=== PATIENT | female | born 1980 | race Caucasian/White ===

== ENCOUNTER 2016-08-15 05:35 | Day surgery (SDC) | payer OTHER ==
[~2016-08-15] VITALS: Ht 185.4 cm; Wt 99.0 kg
[2016-08-15] VITALS (15 sets, daily range): BP systolic 118–140; BP diastolic 67–78; PULSE 86–104; RESP 11–19; Ht 185.4 cm; Wt 99.0 kg
[~2016-08-15 05:35] MED LIST: ACET1TAB40 PO; ACYC400T84 PO; CIPR500T4 PO; CLOT30CR24 TOP; FLUC150T17 PO; HUM100IN2 SC; IBUP-1542 PO; INSU100V18; METF500T PO; NITR-58 PO; NPH,3INS5; PHEN-538 PO
[2016-08-15 06:46] LABS: INR 0.88; PROTIME 11.9 Sec (12.2-14.2); PT RATIO 0.9
[2016-08-15 06:47] LABS: PARTIAL THROMBOPLASTIN TIME 29.9 Sec (25.0-35.0)
[2016-08-15 06:49] LABS: POTASSIUM 4.1 mmol/L (3.5-5.1)
[2016-08-15 06:51] LABS: CREATININE 0.46 mg/dl (0.44-1.00)
[2016-08-15] MEDS ORDERED: NOVO3I SC (06:53)
[2016-08-15] MEDS ORDERED: MTF1000T PO (06:53)
[2016-08-15] MEDS ORDERED: INSULIN ASPART [NOVOLOG] 3 ML PEN SC ONE (07:00)
[2016-08-15 07:07] LABS: BASOPHIL # 0.1 10^3/ul (0.0-0.1); BASOPHILS % 0.6 % (0.0-2.0); EOSINOPHILS # 0.2 10^3/ul (0.0-0.5); EOSINOPHILS % 2.4 % (0.0-7.0); HEMATOCRIT 37.4 % (37.0-47.0); HEMOGLOBIN 13.1 g/dl (12.0-16.0); LYMPHOCYTES # 3.5 10^3/ul (0.8-2.9); MEAN CORPUSCULAR HEMOGLOBIN 29.7 pg (29.0-33.0); MEAN CORPUSCULAR HGB CONC 34.9 g/dl (32.0-37.0); MEAN PLATELET VOLUME 8.8 fl (7.4-10.4); MONOCYTE # 0.7 10^3/ul (0.3-0.9); MONOCYTES % 7.1 % (0.0-11.0); NEUTROPHIL # 5.5 10^3/ul (1.6-7.5); NEUTROPHILS % 54.9 % (39.0-77.0); PLATELET COUNT 264 10^3/UL (140-440); RED CELL DISTRIBUTION WIDTH 14.1 % (11.5-14.5)
[2016-08-15] MEDS ORDERED: SUCCINYLCHOLINE CHLORIDE 100 MG/5 ML SYG IV ONE (07:29)
[2016-08-15] MEDS ORDERED: ONDANSETRON 4 MG INJ ONE (07:29)
[2016-08-15] MEDS ORDERED: NEOSTIGMINE 3 MG/3 ML SYRINGE ONE (07:29)
[2016-08-15] MEDS ORDERED: PROPOFOL 20 ML ONE (07:29)
[2016-08-15] MEDS ORDERED: DEXAMETHASONE 4 MG/ML 1 ML INJ ONE (07:29)
[2016-08-15] MEDS ORDERED: LIDOCAINE 100 MG SYRINGE ONE (07:29)
[2016-08-15] MEDS ORDERED: MIDAZOLAM 1 MG/ML 2 ML INJ ONE (07:29)
[2016-08-15] MEDS ORDERED: FENTAnyl 50 MCG/ML VIAL ONE (07:29)
[2016-08-15] MEDS ORDERED: GLYCOPYRROLATE 0.4 MG INJ ONE (07:29)
[2016-08-15] MEDS ORDERED: ROCURONIUM 50 MG INJ ONE (07:29)
[2016-08-15 07:37] LABS: CONDITION 1
--- NOTE | 2016-08-15 07:38 | HPN ---
Date/Time of Note Date/Time of Note DATE: 08/15/16 TIME: 07:37 Interval H&P Admission Note Pt. seen H&P reviewed: No system changes JUANITO WAGGONER MD Aug 15, 2016 07:37
[2016-08-15] MEDS ORDERED: KETOROLAC 30 MG INJ ONE (07:59)
[2016-08-15] MEDS ORDERED: FERRIC SUBSULFATE 8 GM VIAL TOP ONE (08:01)
--- NOTE | 2016-08-15 08:30 | OPPN ---
Date/Time of Note Date/Time of Note DATE: 08/15/16 TIME: 08:27 Operative/Procedure Note Pre-Operative Diagnosis Cervical dysplasia Post-Operative Diagnosis Same Procedure LEEP Surgeon: JUANITO WAGGONER MD Anesthesiologist: Rico Cast M.D. Findings Previous LEEP, retraction at left lateral fornix. Implants/Grafts: Not applicable Estimated blood loss: 50 - 100 ml's Drains: Not applicable Specimens LEEP and ECC Complications: None Anesthesia type: general JUANITO WAGGONER MD Aug 15, 2016 08:29
[2016-08-15] MEDS ORDERED: FENTAnyl 50 MCG/ML VIAL IV PRN (09:00)
[2016-08-15] MEDS ORDERED: HYDROmorphONE (0.2 MG/ML) 10ML SYG IV PRN ×2 (09:00)
--- NOTE | 2016-08-17 03:18 | OPR ---
DATE OF OPERATION: 08/15/2016 PREOPERATIVE DIAGNOSIS: Cervical dysplasia, moderate. POSTOPERATIVE DIAGNOSIS: Cervical dysplasia, moderate, pending final pathology. OPERATION PERFORMED: Loop electrosurgical excision procedure. ANESTHESIA: General endotracheal. ESTIMATED BLOOD LOSS: Minimal. INTRAOPERATIVE FINDING: Cervix is normal size. There was a retraction toward the left fornix. HISTORY: This is a 35-year-old female who has insulin-dependent diabetes. Her hemoglobin A1c is about 12. She has an abnormal Pap smear. Cervical biopsy and ECC shows SHRUTHI 2, and she is to undergo the above operation to rule out invasive disease. DESCRIPTION OF PROCEDURE: The patient was taken to the OR after of adequate anesthesia, placed in s upine position, prepped and draped in usual sterile fashion. Weighted speculum was placed in the va hieu. Anterior lip of the cervix grasped using single tooth tenaculum. Again, there was retraction for the cervix in the left fornix, probably due to her previous delivery. In any case, medium LEEP wire was selected due to the retraction. The LEEP was performed in 3 passes. Care was taken not t o traumatize the vaginal wall. Then 3 separate passes were made to perform the adequately LEEP, and followed LEEP, the ECC was then performed using endocervical curette in thorough fashion. Upon KENDALL P procedure and ECC, I then proceeded to cauterize the base of the LEEP cone. This was completely c auterized, and good hemostasis was achieved. Once this was completed, the tenaculum released. The tenaculum site was cauterized, and the base of the LEEP cone was then applied with Monsel solution f or further reassurance of hemostasis. At this time, we then watched the cone site for about 5 minut es, and it was hemostatic. At this time, the patient was cleansed, placed back in supine position, successfully extubated, and transferred to recovery in stable condition. Dictated By: DANIEL KOROMA/KAREN Conf#: [id number] DID#: [id number]
== END 2016-08-15 09:52 | disposition home or self-care (01) ==
LOC: SDS 05:35
PROVIDERS: ATTEND Obstetrics & Gynecology Gynecologic Oncology
DX: D06.0 Carcinoma in situ of endocervix (principal); N72 Inflammatory disease of cervix uteri; E11.9 Type 2 diabetes mellitus without complications
CPT/HCPCS: 57522; 80048; 82962; 84703; 85025; 85610; 85730; 88305; J0330; J1100; J1815; J1885; J2001; J2250; J2405; J2710; J3010; Z7512; Z7610

== ENCOUNTER 2017-06-09 13:54 | Inpatient (IN) | payer OTHER ==
[~2017-06-09] VITALS: Ht 185.4 cm; Wt 103.4 kg
[2017-06-09] VITALS (11 sets, daily range): BP systolic 119–145; BP diastolic 65–88; PULSE 68–105; RESP 10–18; Ht 185.4 cm; Wt 103.4 kg
[~2017-06-09 13:54] MED LIST changes: +LIDOCAINE 2% (SDV) 5 ML INJ ONE; +MTF1000T PO; +NOVO3I SC
[2017-06-09] MEDS ORDERED: INSU100I33 SC (15:19)
[2017-06-09] MEDS ORDERED: INSU200I SQ ×2 (15:20→15:22)
--- NOTE | 2017-06-09 19:41 | HPN ---
Date/Time of Note Date/Time of Note DATE: 06/09/17 TIME: 19:41 Interval H&P Admission Note Pt. seen H&P reviewed: No system changes JUANITO WAGGONER MD Jun 09, 2017 19:41
[2017-06-09] MEDS ORDERED: LIDOCAINE 1% (MPF) 30 ML INJ ONE (19:47)
[2017-06-09] MEDS ORDERED: VASOPRESSIN 20 UNITS INJ ONE (19:47)
[2017-06-09] MEDS ORDERED: METHYLENE BLUE 1% 10 ML INJ ONE (19:48)
[2017-06-09] MEDS ORDERED: morphine SULFATE/PF (10 MG/10 ML) INJ ONE (19:52)
[2017-06-09] MEDS ORDERED: FENTAnyl 50 MCG/ML VIAL ONE ×2 (19:52→20:43)
[2017-06-09] MEDS ORDERED: ROCURONIUM 50 MG INJ ONE (20:02)
[2017-06-09] MEDS ORDERED: PROPOFOL 20 ML ONE (20:02)
[2017-06-09] MEDS ORDERED: MIDAZOLAM 1 MG/ML 2 ML INJ ONE (20:03)
[2017-06-09] MEDS ORDERED: BUPIVACAINE 0.5% (SDV) 30 ML INJ ONE (20:11)
[2017-06-09] MEDS ORDERED: DEXAMETHASONE 4 MG/ML 1 ML INJ ONE (20:52)
[2017-06-09] MEDS ORDERED: KETOROLAC 30 MG INJ ONE (21:56)
[2017-06-09] MEDS ORDERED: ONDANSETRON 4 MG INJ ONE (21:57)
[2017-06-09] MEDS ORDERED: DIPHENHYDRAMINE 50 MG INJ IV PRN ×2 (22:00→22:30)
[2017-06-09] MEDS ORDERED: GLUCOSE GEL 15 GRAM TUBE BUCCAL PRN (22:00)
[2017-06-09] MEDS ORDERED: EPHEDrine SULFATE 50 MG/5 ML SYG IV PRN (22:00)
[2017-06-09] MEDS ORDERED: INSULIN ASPART [NOVOLOG] 3 ML PEN SC ONE (22:00)
[2017-06-09] MEDS ORDERED: hydrALAzine 20 MG INJ IV PRN (22:00)
[2017-06-09] MEDS ORDERED: HYDROmorphONE (0.2 MG/ML) 10ML SYG IV PRN ×3 (22:00)
[2017-06-09] MEDS ORDERED: MIDAZOLAM 1 MG/ML 2 ML INJ IV PRN (22:00)
[2017-06-09] MEDS ORDERED: KETOROLAC 30 MG INJ IV PRN ×2 (22:00→22:30)
[2017-06-09] MEDS ORDERED: DEXTROSE 50% 50 ML SYRINGE IV PRN ×2 (22:00)
[2017-06-09] MEDS ORDERED: GLUCAGON 1 MG INJ IM PRN (22:00)
[2017-06-09] MEDS ORDERED: FENTAnyl 50 MCG/ML VIAL IV PRN ×3 (22:00)
[2017-06-09] MEDS ORDERED: METOCLOPRAMIDE 10 MG INJ IV PRN ×2 (22:00→22:30)
[2017-06-09] MEDS ORDERED: GLUCOSE GEL 15 GRAM TUBE PO PRN ×2 (22:00)
[2017-06-09] MEDS ORDERED: MEPERIDINE 25 MG INJ IV PRN (22:00)
[2017-06-09] MEDS ORDERED: ONDANSETRON 4 MG INJ IV PRN ×3 (22:00→22:30)
[2017-06-09] MEDS ORDERED: LABETALOL HCL 20MG INJ IV PRN (22:00)
[2017-06-09] MEDS ORDERED: GLYCOPYRROLATE 0.4 MG INJ ONE (22:04)
[2017-06-09] MEDS ORDERED: NEOSTIGMINE 3 MG/3 ML SYRINGE ONE (22:04)
--- NOTE | 2017-06-09 22:12 | SIPON ---
Date/Time of Note Date/Time of Note DATE: 06/09/17 TIME: 22:11 Operative Report Preoperative Diagnosis CIS of cervix Postoperative Diagnosis SAme Operation/Procedure Performed Total laparoscopic hysterectomy, bilateral salpingectomy Surgeon Peyton Sherman MD physical laboratory assistant [employer] Anesthesia: general, spinal Estimated blood loss: 100 - 150 ml's Transfusion Required none Specimen Uterus, cervix, fallopian tubes Grafts/Implants none Complications none JUANITO SHERMAN MD Jun 09, 2017 22:12
[2017-06-09] MEDS ORDERED: NALOXONE (0.4 MG/ML) INJ IV PRN (22:30)
[2017-06-09] MEDS ORDERED: HYDROmorphONE 0.5 MG/0.5 ML SYG IV PRN ×2 (22:30)
[2017-06-09] MEDS ORDERED: ACETAMINOPHEN 325 MG TAB PO PRN (22:30)
[2017-06-09] MEDS ORDERED: morphine 2 MG INJ IV PRN (22:30)
[2017-06-09] MEDS ORDERED: HYDROCODONE/APAP (5/325) TAB PO PRN (22:30)
[2017-06-09] MEDS ORDERED: ZOLPIDEM 5 MG TAB PO PRN (22:30)
[2017-06-09 22:52] LABS: BASOPHIL # 0.1 10^3/ul (0.0-0.1); BASOPHILS % 0.3 % (0.0-2.0); EOSINOPHILS # 0.1 10^3/ul (0.0-0.5); EOSINOPHILS % 0.6 % (0.0-7.0); HEMATOCRIT 35.6 % (37.0-47.0); HEMOGLOBIN 12.3 g/dl (12.0-16.0); LYMPHOCYTES # 2.8 10^3/ul (0.8-2.9); MEAN CORPUSCULAR HEMOGLOBIN 29.4 pg (29.0-33.0); MEAN CORPUSCULAR HGB CONC 34.6 g/dl (32.0-37.0); MEAN CORPUSCULAR VOLUME 85.2 fl (82.0-101.0); MEAN PLATELET VOLUME 9.6 fl (7.4-10.4); MONOCYTE # 0.4 10^3/ul (0.3-0.9); MONOCYTES % 2.3 % (0.0-11.0); NEUTROPHIL # 15.3 10^3/ul (1.6-7.5); NEUTROPHILS % 81.3 % (39.0-77.0); PLATELET COUNT 298 10^3/UL (140-415); RED BLOOD COUNT 4.18 10^6/ul (4.20-5.40); RED CELL DISTRIBUTION WIDTH 13.2 % (11.5-14.5); WHITE BLOOD COUNT 18.8 10^3/ul (4.8-10.8)
[2017-06-09 22:57] LABS: HOLD TRANSMISSIONS 1
[2017-06-09 23:30] LABS: CALCIUM 8.6 mg/dl (8.4-10.2); CREATININE 0.62 mg/dl (0.44-1.00)
[2017-06-10] VITALS (10 sets, daily range): BP systolic 110–116; BP diastolic 57–66; PULSE 65–75; RESP 15–19
[2017-06-10 05:12] LABS: BASOPHILS % 0.2 % (0.0-2.0); HEMATOCRIT 40.8 % (37.0-47.0); LYMPHOCYTES % 7.5 % (15.0-51.0); MEAN CORPUSCULAR HEMOGLOBIN 29.2 pg (29.0-33.0); MEAN CORPUSCULAR HGB CONC 34.3 g/dl (32.0-37.0); MEAN PLATELET VOLUME 9.8 fl (7.4-10.4); MONOCYTE # 0.1 10^3/ul (0.3-0.9); NEUTROPHIL # 11.9 10^3/ul (1.6-7.5); NEUTROPHILS % 90.8 % (39.0-77.0); PLATELET COUNT 319 10^3/UL (140-415); RED CELL DISTRIBUTION WIDTH 13.1 % (11.5-14.5); WHITE BLOOD COUNT 13.1 10^3/ul (4.8-10.8)
[2017-06-10 05:40] LABS: CALCIUM 9.1 mg/dl (8.4-10.2); CREATININE 0.56 mg/dl (0.44-1.00); POTASSIUM 4.8 mmol/L (3.5-5.1)
--- NOTE | 2017-06-10 07:01 | OPR ---
DATE OF OPERATION: 06/09/2017 PREOPERATIVE DIAGNOSES: 1. Carcinoma in situ of the cervix. 2. History of section. POSTOPERATIVE DIAGNOSES: 1. Carcinoma in situ of the cervix. 2. History of section. SURGEON: Peyton Sherman MD STAMPING MILL TENDER: None. PROCEDURE: Total laparoscopic hysterectomy with bilateral salpingectomy. ANESTHESIA: General endotracheal and spinal. ANESTHESIOLOGIST: Dr. Gonsalez. ESTIMATED BLOOD LOSS: About 100 mL. INTRAOPERATIVE FINDINGS: The patient is obese. Uterus is about 10 weeks' size. There is a lower uterine segment scar. Ovaries are normal bilaterally. HISTORY: This is a 36-year-old female who is an insulin-dependent diabetic. She has a high grade Pap smear and that led to a biopsy showing SHRUTHI 3. She underwent a LEEP procedure and it did show SHRUTHI 3. No invasive disease. The patient was counseled regarding observation versus definitive hysterectomy and patient is insulin-dependent diabetes. She has completed childbearing and she desires surgical treatment. She was authorized and cleared to undergo the above operation. PROCEDURE IN DETAIL: She was taken to the OR. After adequate general and spinal anesthesia, she was placed in supine position, prepped and draped in the usual sterile fashion. A Dumont catheter was inserted by nursing staff. The cervix was dilated. A standard size VCare uterine manipulator was inserted. Vaginal pneumo-occluder was applied. I then changed gloves, went up to the abdomen. A supraumbilical incision made using an 11 blade. A 5 mm trocar was placed. The patient was placed in Trendelenburg position. Three other trocars were placed, one 5 mm in the right lower quadrant, a second 5 mm in the left lower quadrant, and an 11 mm suprapubic. There were omental adhesions to the anterior abdominal wall and these were taken down using an Olympus Thunderbeat device. Also, omental adhesions to the fallopian tube on the left side. When this was all taken down, I then proceeded to separate the fallopian tube from the ovary by cauterizing and transecting the meso-ovarian tissue. Fallopian tubes were kept attached to the uterus. Next, the round ligament was then cauterized and transected. I then took the bladder flap down to pubocervical fascia below the scar. There were more scars on the left side and these were taken down without difficulty. A vascular space was opened. Since we are preserving the ovaries. Both utero-ovarian ligaments were cauterized and transected using Olympus Thunderbeat device. Once ovaries were , I proceeded to skeletonize the tissues surrounding the cervical cup VCare device and uterine vessels were isolated, cauterized, cut, and rolled over the cervical cup. At this time, the entire cup was well visualized in 360 degrees. I then used a Gyrus bipolar J-hook to perform colpotomy. This was completed in 360 degrees without difficulty. At this time I went down below. I removed the VCare device and I grabbed the cervix. I delivered the specimen vaginally intact and sent to Pathology as a permanent section. At this time, vaginal pneumo-occluder was reapplied. I then changed gloves and went back up to abdomen and pelvis, thoroughly irrigated. Multiple pictures were taken. Next, I proceeded to close the vaginal cuff abdominally. This was a V-Loc suture. This was a GS-22 needle and a 2-0 PDS suture. This was placed in through the suprapubic trocar and the vaginal cuff was closed from left angle to right angle , incorporating full thickness of vagina. At right angle, suture was cut and the needle was removed. The midline vaginal cuff was further reinforced using 0 PDS on a CT2 needle. This was sutured intracorporally, and tied extracorporally. Both sutures were cut. Both needles were removed. At this time, a low pressure check was made. All the pedicles were hemostatic. At this time, the suprapubic trocar was removed. The fascia for the suprapubic trocar was closed using Endo closure device with a 0 Vicryl suture. Once this was closed, the patient was placed back in supine position. All the trocars were removed and pneumoperitoneum was released, and the skin sites were closed using Monocryl and Dermabond. At this time, the patient was cleansed, vaginal pneumo-occluder was removed, placed back in supine position, patient extubated and transferred to recovery room in stable condition. Dictated By: PEYTON KOROMA/KAREN Conf#: [id number] DID#: [id number] DASHAWN
[2017-06-10] MEDS: metFORMIN 500 MG TAB PO SCH ×2 (08:32→17:30)
[2017-06-10] MEDS: INSULIN ASPART [NOVOLOG] 3 ML PEN SC SCH ×4 (08:42→20:32)
[2017-06-10] MEDS ORDERED: METOCLOPRAMIDE 10 MG INJ IV PRN (20:11)
[2017-06-10] MEDS ORDERED: ONDANSETRON 4 MG INJ IV PRN (20:11)
[2017-06-10] MEDS ORDERED: morphine 2 MG INJ IV PRN (20:11)
[2017-06-10] MEDS ORDERED: INSULIN GLARGINE [LANtus] 3 ML PEN SC SCH (21:00)
--- NOTE | 2017-06-10 21:12 | PN ---
Date/Time of Note Date/Time of Note DATE: 06/10/17 TIME: 21:11 Assessment/Plan VTE Prophylaxis VTE Prophylaxis Intervention: SCD's Lines/Catheters IV [facility]from [facility] Peripheral IV Urinary Cath still in place: No Assessment/Plan Chief Complaint/Hosp Course POD #1 Problems: Assessment/Plan Advance diet, d/c wells, D/C planning for tomorrow. Subjective 24 Hr Interval Summary Constitutional: no complaints Exam/Review of Systems Vital Signs Vitals Vital Signs Date Time Temp Pulse Resp B/P Pulse Ox O2 Delivery O2 Flow Rate FiO2 06/10/17 20:00 98.7 74 18 112/61 99 06/10/17 02:05 Room Air Intake and Output 06/09/17 06/09/17 06/10/17 15:00 23:00 07:00 Intake Total 1200 ml 220 ml Output Total 240 ml 400 ml Balance 960 ml -180 ml Exam Gastrointestinal: soft Results Result Diagram: 06/10/17 0443 06/10/17 0443 Results 24 hrs Laboratory Tests Test 06/09/17 22:47 06/09/17 23:17 06/10/17 00:31 06/10/17 04:43 White Blood Count 18.8 #H 13.1 #H Red Blood Count 4.18 L 4.80 Hemoglobin 12.3 14.0 Hematocrit 35.6 L 40.8 Mean Corpuscular Volume 85.2 85.0 Mean Corpuscular Hemoglobin 29.4 29.2 Mean Corpuscular Hemoglobin Concent 34.6 34.3 Red Cell Distribution Width 13.2 13.1 Platelet Count 298 319 Mean Platelet Volume 9.6 9.8 Neutrophils % 81.3 H 90.8 H Lymphocytes % 15.0 7.5 L Monocytes % 2.3 1.0 Eosinophils % 0.6 0.0 Basophils % 0.3 0.2 Nucleated Red Blood Cells % 0.0 0.0 Neutrophils # 15.3 H 11.9 H Lymphocytes # 2.8 1.0 Monocytes # 0.4 0.1 L Eosinophils # 0.1 0.0 Basophils # 0.1 0.0 Nucleated Red Blood Cells # 0.0 0.0 CBC Results Faxed/Phoned 1 *H Sodium Level 138 138 Potassium Level 4.0 4.8 Chloride Level 105 104 Carbon Dioxide Level 25 25 Anion Gap 12 14 Blood Urea Nitrogen 8 12 Creatinine 0.62 0.56 Glucose Level 215 242 H Calcium Level 8.6 9.1 Bedside Glucose 229 H 229 H Test 06/10/17 06:21 06/10/17 08:35 06/10/17 12:50 06/10/17 17:13 Lab Scanned Report LAB Bedside Glucose 211 174 168 Test 06/10/17 20:28 Bedside Glucose 192 Medications Medications Current Medications Miscellaneous Information 1 ea NOTE XX ; Start 06/09/17 at 22:00 Glucose (Glutose) 15 gm Q15M PRN PO DECREASED GLUCOSE; Start 06/09/17 at 22:00 Glucose (Glutose) 22.5 gm Q15M PRN PO DECREASED GLUCOSE; Start 06/09/17 at 22: 00 Dextrose (D50w Syringe) 25 ml Q15M PRN IV DECREASED GLUCOSE; Start 06/09/17 at 22:00 Dextrose (D50w Syringe) 50 ml Q15M PRN IV DECREASED GLUCOSE; Start 06/09/17 at 22:00 Glucagon (Glucagen) 1 mg Q15M PRN IM DECREASED GLUCOSE; Start 06/09/17 at 22:00 Glucose (Glutose) 15 gm Q15M PRN BUCCAL DECREASED GLUCOSE; Start 06/09/17 at 22 :00 Acetaminophen (Tylenol Tab) 650 mg Q4H PRN PO PAIN LEVEL 1-5; Start 06/09/17 at 22:30 Naloxone HCl (Narcan) 0.2 mg Q2M PRN IV FOR RESP RATE 8 OR LESS; Start at 22:30 Insulin Glargine (Lantus) 40 unit QHS SC Last administered on 06/10/17t 20:31; Admin Dose 40 UNIT; Start 06/10/17 at 21:00 Diagnostic Test (Pha) (Accu-Chek) 1 ea 02 XX ; Start 06/11/17 at 02:00 Diagnostic Test (Pha) (Accu-Chek) 1 ea 02 XX ; Start 06/11/17 at 02:00 Acetaminophen/ Hydrocodone Bitart ([place] (5/325)) 1 tab Q4H PRN PO PAIN LEVEL 6 -10; Start 06/10/17 at 20:11 Metoclopramide HCl (Reglan) 10 mg Q6H PRN IV NAUSEA AND/OR VOMITING; Start 06/10/17 at 20:11 Morphine Sulfate (morphine) 2 mg Q2H PRN IV BREAKTHROUGH PAIN; Start 06/10/17 at 20:11 Ondansetron HCl (Zofran Inj) 4 mg Q6H PRN IV NAUSEA AND/OR VOMITING; Start 06/10/17 at 20:11 JUANITO WAGGONER MD Jun 10, 2017 21:12
[2017-06-11] MEDS ORDERED: ACCU-CHEK XX SCH ×2 (02:00)
[2017-06-11 02:11] VITALS: BP 119/56; RESP 18
[2017-06-11 05:11] LABS: BASOPHILS % 0.4 % (0.0-2.0); EOSINOPHILS # 0.1 10^3/ul (0.0-0.5); EOSINOPHILS % 0.8 % (0.0-7.0); HEMOGLOBIN 11.6 g/dl (12.0-16.0); LYMPHOCYTES # 4.4 10^3/ul (0.8-2.9); LYMPHOCYTES % 38.9 % (15.0-51.0); MEAN CORPUSCULAR HEMOGLOBIN 28.9 pg (29.0-33.0); MEAN CORPUSCULAR HGB CONC 33.1 g/dl (32.0-37.0); MEAN CORPUSCULAR VOLUME 87.1 fl (82.0-101.0); MEAN PLATELET VOLUME 9.9 fl (7.4-10.4); MONOCYTE # 0.9 10^3/ul (0.3-0.9); MONOCYTES % 7.7 % (0.0-11.0); NEUTROPHIL # 5.8 10^3/ul (1.6-7.5); NEUTROPHILS % 51.8 % (39.0-77.0); PLATELET COUNT 300 10^3/UL (140-415); RED BLOOD COUNT 4.02 10^6/ul (4.20-5.40); RED CELL DISTRIBUTION WIDTH 13.2 % (11.5-14.5); WHITE BLOOD COUNT 11.3 10^3/ul (4.8-10.8)
[2017-06-11] MEDS: HYDROCODONE/APAP (5/325) TAB PO PRN ×3 (05:36→20:33)
[2017-06-11 05:44] LABS: CALCIUM 8.3 mg/dl (8.4-10.2); CREATININE 0.6 mg/dl (0.44-1.00); POTASSIUM 3.8 mmol/L (3.5-5.1)
[2017-06-11 07:38] VITALS: BP 98/56; RESP 20
[2017-06-11] MEDS: INSULIN ASPART [NOVOLOG] 3 ML PEN SC SCH ×3 (07:50→18:53)
[2017-06-11 09:00] VITALS: BP 120/70; PULSE 78; RESP 18
[2017-06-11] MEDS: metFORMIN 500 MG TAB PO SCH ×2 (09:32→18:48)
--- NOTE | 2017-06-11 19:22 | PD.PPDC ---
[employer] Discharge Instruction Diagnosis Final Diagnosis: Cervical dysplasia Condition Patient Condition: Good Diet Diet: Resume Regular Diet Activity/Restrictions Activity: Normal Activity Restrictions: No Sexual Activity Wound/Drain Care Instructions Wound/Drain Care Instructions: Keep clean and dry Follow-up Follow-up with Physician: 2, Week/Weeks Return to clinic for [employer] INSPECTOR Instructions: Fever greater than 101 Excessive Vaginal Bleeding JUANITO WAGGONER MD Jun 11, 2017 19:22
[2017-06-11] MEDS ORDERED: HYDR-3498 PO (19:23)
--- NOTE | 2017-06-11 19:26 | DS ---
Date/Time of Note Date/Time of Note DATE: 06/11/17 TIME: 19:25 Discharge Summary Admission/Discharge Info Admit Date/Time Jun 09, 2017 at 14:44 Discharge Date/Time 06-11-17 Discharge Diagnosis Cervical dysplaisa Patient Condition: Good Procedures TLH, bilateral salpingectomy Hospital Course Tolerated procedure. + BM, voided. Home Meds Reported Medications Insulin Lispro (Humalog Kwikpen) 200 Unit/1 Ml Insuln.pen, 20 UNIT SQ in the afternoon, EA between 3-4pm 06/09/17 Insulin Lispro (Humalog Kwikpen) 200 Unit/1 Ml Insuln.pen, 30 UNIT SQ QAM, EA 06/09/17 Insulin Glargine,Hum.rec.anlog (Basaglar Kwikpen U-100) 100 Unit/1 Ml Insuln.pen , 40 UNIT SC QHS 06/09/17 Metformin Hcl (Glucophage) 500 Mg Tablet, 1000 MG PO BID 07/19/13 Discontinued Reported Medications Metformin* (Glucophage*) 1,000 Mg Tablet, 1000 MG PO BID, #60 TAB 08/15/16 Insulin Aspart* (Novolog Insulin Pen*) 100 Unit/Ml Soln, 0 SC .SLIDING SCALE AC , EA 08/15/16 Nitrofurantoin Monohyd Macrocr* (Macrobid*) 100 Mg Capsr, 100 MG PO BID X 7DAYS 07/19/13 Hum Insulin Nph/Reg Insulin Hm (Humulin 70-30 Pen) 100 Units/Ml Pen, 25 UNITS SC PM 07/19/13 Hum Insulin Nph/Reg Insulin Hm (Humulin 70-30 Pen) 100 Units/Ml Pen, 30 UNITS SC AM 07/19/13 Acyclovir* (Zovirax*) 400 Mg Tablet, 400 MG PO TID X 7 DAYS 07/19/13 Insulin Lispro (Humalog) 100 U/Ml Vial 07/14/09 Nph, Human Insulin Isophane (Humulin N) 100 Units/Ml Pen 07/14/09 Discontinued Scripts Ibuprofen* (Motrin*) 600 Mg Tab, 600 MG PO Q6, #20 TAB Prov:DAKOTA INGRAM MD 05/09/15 Fluconazole* (Diflucan*) 150 Mg Tablet, 150 MG PO ONCE, #1 TAB Prov:DAKOTA INGRAM MD 02/02/15 Acetaminophen-Codeine* (Acetaminophen-Cod #3*) 300-30 Mg Tab, 1 TAB PO Q4H Y for PAIN, #10 TAB Prov:DAKOTA INGRAM MD 02/02/15 Clotrimazole* (Clotrimazole* AF) 1% - 30 Gm Cream.gm., 1 APPLIC TOP BID for 7 Days, TUB Prov:DAKOTA INGRAM MD 02/02/15 Ciprofloxacin Hcl* (Ciprofloxacin Hcl*) 500 Mg Tablet, 500 MG PO BID for 5 Days , TAB Prov:DAKOTA INGRAM MD 02/02/15 Phenazopyridine Hcl* (Pyridium*) 200 Mg Tab, 200 MG PO TID Y for DYSURIA, #6 TAB Prov:DAKOTA INGRAM MD 02/02/15 Follow-up Plan See me in office in 2 weeks. Primary Care Provider Not On Staff Doctor Time spent on discharge: < 30 minutes Pending Labs Laboratory Tests Test 06/10/17 20:28 06/11/17 02:24 06/11/17 04:28 06/11/17 09:28 Bedside Glucose 192mg/dL (70-220) 162mg/dL (70-220) 123mg/dL (70-220) White Blood Count 11.310^3/ul (4.8-10.8) Red Blood Count 4.0210^6/ul (4.20-5.40) Hemoglobin 11.6g/dl (12.0-16.0) Hematocrit 35.0% (37.0-47.0) Mean Corpuscular Volume 87.1fl (82.0-101.0) Mean Corpuscular Hemoglobin 28.9pg (29.0-33.0) Mean Corpuscular Hemoglobin Concent 33.1g/dl (32.0-37.0) Red Cell Distribution Width 13.2% (11.5-14.5) Platelet Count 30446^3/UL (140-415) Mean Platelet Volume 9.9fl (7.4-10.4) Neutrophils % 51.8% (39.0-77.0) Lymphocytes % 38.9% (15.0-51.0) Monocytes % 7.7% (0.0-11.0) Eosinophils % 0.8% (0.0-7.0) Basophils % 0.4% (0.0-2.0) Nucleated Red Blood Cells % 0.0/100WBC (0.0-0.0) Neutrophils # 5.810^3/ul (1.6-7.5) Lymphocytes # 4.410^3/ul (0.8-2.9) Monocytes # 0.910^3/ul (0.3-0.9) Eosinophils # 0.110^3/ul (0.0-0.5) Basophils # 0.010^3/ul (0.0-0.1) Nucleated Red Blood Cells # 0.010^3/ul (0.0-0.0) Sodium Level 140mmol/L (135-144) Potassium Level 3.8mmol/L (3.5-5.1) Chloride Level 106mmol/L (97-110) Carbon Dioxide Level 27mmol/L (21-31) Anion Gap 11 (8-16) Blood Urea Nitrogen 11mg/dl (7-20) Creatinine 0.60mg/dl (0.44-1.00) Glucose Level 151mg/dl (70-220) Calcium Level 8.3mg/dl (8.4-10.2) Test 06/11/17 13:28 06/11/17 18:35 Bedside Glucose 153mg/dL (70-220) 200mg/dL (70-220) JUANITO WAGGONER MD Jun 11, 2017 19:26
== END 2017-06-11 21:00 | disposition home or self-care (01) | DRG 741 ==
LOC: EDSTATUS 14:30 → REC 14:44 → MS1 23:20
PROVIDERS: ADMIT Obstetrics & Gynecology Gynecologic Oncology; ATTEND Obstetrics & Gynecology Gynecologic Oncology
PROC: 0UT74ZZ Resection of Bilateral Fallopian Tubes, Percutaneous Endoscopic Approach (ICD-10-PCS; 2017-06-09)
PROC: 0UT94ZZ Resection of Uterus, Percutaneous Endoscopic Approach (ICD-10-PCS; principal; 2017-06-09 17:00)
DX: D06.9 Carcinoma in situ of cervix, unspecified (principal); E11.9 Type 2 diabetes mellitus without complications; Z79.4 Long term (current) use of insulin
CPT/HCPCS: 80048; 82962; 85025; 86850; 86900; 86901; 87086; 88305; J1100; J1200; J1815; J1885; J2250; J2270; J2274; J2405; J2710; J3010

== ENCOUNTER 2018-02-15 18:02 | Emergency (ER) | END 2018-02-15 22:10 | disposition home or self-care (01) ==

== ENCOUNTER 2019-03-31 16:34 | Emergency (ER) | payer OTHER ==
[~2019-03-31] VITALS: Ht 185.4 cm; Wt 102.9 kg
[~2019-03-31 16:34] MED LIST changes: -ACET1TAB40 PO; -ACYC400T84 PO; +CEPH-443 PO; -CIPR500T4 PO; -CLOT30CR24 TOP; +CYCL10TA7 PO; -FLUC150T17 PO; -HUM100IN2 SC; +INSU100I33 SC; -INSU100V18; +INSU200I SQ; -LIDOCAINE 2% (SDV) 5 ML INJ ONE; -MTF1000T PO; -NITR-58 PO; -NOVO3I SC; -NPH,3INS5
[2019-03-31 16:53] VITALS: Ht 185.4 cm; Wt 102.9 kg
[2019-03-31 19:58] VITALS: BP 124/69; PULSE 62; RESP 18
== END 2019-03-31 20:20 | disposition home or self-care (01) ==
LOC: FTE 16:34
DX: M54.5 Low back pain (principal); F17.210 Nicotine dependence, cigarettes, uncomplicated; M79.89 Other specified soft tissue disorders; R30.9 Painful micturition, unspecified; Z79.4 Long term (current) use of insulin
CPT/HCPCS: 81003; 81025; 87086; Z7502; 99283